=== PATIENT | female | born 1950 | race Native Hawaiian/Other Pacific Islander ===

== ENCOUNTER 2017-12-01 15:42 | Outpatient (CLI) | payer BC | END 2017-12-01 23:40 | disposition home or self-care (01) | LOC: MAMMO 15:42 | DX: Z12.31 Encounter for screening mammogram for malignant neoplasm of breast (principal) ==

== ENCOUNTER 2020-09-21 18:39 | Emergency (ER) | payer BC ==
[2020-10-05 13:14] LABS: PLATELET COUNT 258 K/uL (152-353)
[2020-10-05 13:18] LABS: POTASSIUM 5.4 mmol/L (3.6-5.2)
== END 2020-09-21 21:00 | disposition home or self-care (01) ==
LOC: ED 18:39
PROVIDERS: Family Medicine
DX: E87.5 Hyperkalemia (principal)
CPT/HCPCS: 80053; 81000; 85027; 99283

== ENCOUNTER 2022-02-18 08:27 | Outpatient (CLI) | payer OTHER ==
[~2022-02-18] VITALS: Ht 165.1 cm; Wt 87.5 kg
== END 2022-02-18 19:53 | disposition home or self-care (01) ==
LOC: NM 08:27
PROVIDERS: ATTEND Nurse Practitioner Adult Health
DX: I10 Essential (primary) hypertension (principal); I36.1 Nonrheumatic tricuspid (valve) insufficiency; R07.89 Other chest pain; Z86.79 Personal history of other diseases of the circulatory system; Z09 Encounter for follow-up examination after completed treatment for conditions other than malignant neoplasm
CPT/HCPCS: A9500; J2785

== ENCOUNTER 2022-03-14 09:25 | Outpatient (CLI) | payer OTHER ==
[2022-03-14 09:56] LABS: PLATELET COUNT 323 K/uL (152-353)
== END 2022-03-14 19:02 | disposition home or self-care (01) ==
LOC: LABW 09:25
PROVIDERS: ATTEND Specialist
DX: R94.39 Abnormal result of other cardiovascular function study (principal)
CPT/HCPCS: 36415; 80048; 85027

== ENCOUNTER 2022-03-20 11:22 | Outpatient (CLI) | payer OTHER ==
[2022-03-20 12:01] LABS: POTASSIUM 4.5 mmol/L (3.6-5.2)
== END 2022-03-20 18:58 | disposition home or self-care (01) ==
LOC: LABW 11:22
PROVIDERS: ATTEND Specialist
DX: R94.39 Abnormal result of other cardiovascular function study (principal)
CPT/HCPCS: 36415; 80048

== ENCOUNTER 2022-04-05 11:00 | Outpatient (CLI) | payer OTHER ==
[2022-04-05 12:52] LABS: PLATELET COUNT 346 K/uL (152-353)
[2022-04-05 12:57] LABS: POTASSIUM 4.7 mmol/L (3.6-5.2)
== END 2022-04-05 23:59 | disposition home or self-care (01) ==
LOC: LABW 11:00
PROVIDERS: ATTEND Internal Medicine Endocrinology, Diabetes & Metabolism
DX: D64.89 Other specified anemias (principal); E87.5 Hyperkalemia; R94.4 Abnormal results of kidney function studies
CPT/HCPCS: 36415; 80048; 82272; 85027

== ENCOUNTER 2022-11-27 09:06 | Emergency (ER) | payer OTHER ==
[~2022-11-27] VITALS: Ht 165.1 cm; Wt 76.7 kg
[2022-11-27 10:28] LABS: PLATELET COUNT 262 K/uL (152-353)
[2022-11-27 10:35] LABS: POTASSIUM 4.7 mmol/L (3.6-5.2)
[2022-11-27 15:00] VITALS: BP 137/42; TEMP 98.2
== END 2022-11-27 15:20 | disposition home or self-care (01) ==
LOC: ED 09:06
PROVIDERS: Family Medicine
DX: E86.0 Dehydration (principal); R55 Syncope and collapse
CPT/HCPCS: 36415; 80053; 81000; 84484; 85027; 87086; 87088; 93005; 96361; 96365; 99284; J0696